=== PATIENT | male | born 1955 | race Caucasian/White ===

== ENCOUNTER 2018-08-19 14:10 | Inpatient (IN) | payer MEDICAID, OTHER ==
[~2018-08-19] VITALS: Ht 165.1 cm; Wt 64.0 kg
[~2018-08-19 14:10] MED LIST: GLUCOPHAGE; METFORMIN; TRAMADOL
[2018-08-19] MEDS ORDERED: SODIUM CHLORIDE 0.9% 1,000 ML IV ONE (14:41)
[2018-08-19] MEDS ORDERED: ONDANSETRON HCL 4MG/2ML INJ IV ONE (14:45)
[2018-08-19 16:08] LABS: BASOPHILS % 2.4 % (0.0-2.0); EOSINOPHILS % 0.4 % (0.0-5.0); HEMATOCRIT. 43.8 % (42.0-52.0); HEMOGLOBIN. 14.7 g/dL (14.0-18.0); LYMPHOCYTES % 29.9 % (20.0-50.0); MEAN CORPUSCULAR HEMOGLOBIN 33.1 pg (28.0-32.0); MEAN CORPUSCULAR VOLUME 98.8 fL (80.0-94.0); MEAN PLATELET VOLUME 8.7 fl (7.4-10.4); MONOCYTES % 4.1 % (2.0-8.0); NEUTROPHILS % 63.2 % (40.0-76.0); PLATELET 220 x1000/uL (130-400); RED BLOOD CELL COUNT 4.43 mill/uL (4.7-6.1); RED CELL DISTRIBUTION WIDTH 16.3 % (11.6-14.6)
[2018-08-19 16:10] LABS: CHLORIDE 95 mEq/L (98-107)
[2018-08-19 16:44] LABS: ETHANOL BLOOD 435 mg/dL
[2018-08-19 20:46] LABS: *AMPHETAMINES SCREEN URINE NEGATIVE (NEGATIVE); *BARBITURATES SCREEN URINE NEGATIVE (NEGATIVE)
[2018-08-19 20:47] LABS: *BENZODIAZEPINES SCREEN URINE NEGATIVE (NEGATIVE); *COCAINE SCREEN URINE NEGATIVE (NEGATIVE); CANNABINOID URINE SCREEN NEGATIVE (NEGATIVE); METHADONE URINE SCREEN NEGATIVE (NEGATIVE); OPIATES URINE SCREEN NEGATIVE (NEGATIVE); PHENCYCLIDINE URINE SCREEN NEGATIVE (NEGATIVE)
[2018-08-20] MEDS ORDERED: CHLORDIAZEPOXIDE 25MG CAPSULE PO NR (07:00)
[2018-08-20] MEDS ORDERED: LORAZEPAM 2MG/ML CPJ IM ONE (08:15)
[2018-08-20] MEDS ORDERED: LORAZEPAM 2MG/ML CPJ IV STA (09:17)
[2018-08-20] MEDS ORDERED: FOLIC ACID 1 MG, THIAMINE HCL 100 MG, MVI, ADULT NO.1 10 ML in DEXTROSE 5% WATER 1,000 ML IV ONE ×4 (09:30)
[2018-08-20 09:44] LABS: BASOPHILS % 0.9 % (0.0-2.0); EOSINOPHILS % 0.1 % (0.0-5.0); HEMATOCRIT. 40.6 % (42.0-52.0); HEMOGLOBIN. 13.6 g/dL (14.0-18.0); LYMPHOCYTES % 7.5 % (20.0-50.0); MEAN CORPUSCULAR HEMOGLOBIN 33.2 pg (28.0-32.0); MEAN CORPUSCULAR VOLUME 99.3 fL (80.0-94.0); MEAN PLATELET VOLUME 8.8 fl (7.4-10.4); MONOCYTES % 5.8 % (2.0-8.0); NEUTROPHILS % 85.7 % (40.0-76.0); PLATELET 185 x1000/uL (130-400); RED BLOOD CELL COUNT 4.09 mill/uL (4.7-6.1); RED CELL DISTRIBUTION WIDTH 15.9 % (11.6-14.6)
[2018-08-20 09:48] LABS: CHLORIDE 89 mEq/L (98-107)
[2018-08-20 09:51] LABS: ETHANOL BLOOD < 10 mg/dL
[2018-08-20] MEDS: SODIUM CHLORIDE 0.9% 1,000 ML IV NR (12:10)
[2018-08-20] MEDS ORDERED: DEXTROSE 50% WATER 50ML SYRINGE IV PRN (15:30)
[2018-08-20] MEDS ORDERED: LORAZEPAM 2MG/ML CPJ IV PRN (15:30)
[2018-08-20] MEDS ORDERED: ONDANSETRON HCL 4MG/2ML INJ IV PRN (15:30)
[2018-08-20] MEDS: SODIUM CHLORIDE 0.9% 1,000 ML IV SCH ×3 (15:42→23:43)
[2018-08-20] MEDS ORDERED: CLONIDINE 0.1MG TABLET PO PRN (15:45)
[2018-08-20] MEDS: CHLORDIAZEPOXIDE 25MG CAPSULE PO SCH ×2 (15:55→16:02)
[2018-08-20 15:59] LABS: CLARITY URINE CLEAR (CLEAR); COLOR URINE YELLOW (YELLOW); KETONES URINE 1+ (NEGATIVE); LEUKOCYTE ESTERASE URINE NEGATIVE (NEGATIVE); NITRITE URINE NEGATIVE (NEGATIVE); OCCULT BLOOD URINE NEGATIVE (NEGATIVE); PROTEIN URINE 1+ (NEGATIVE); SPECIFIC GRAVITY URINE 1.013 (1.005-1.030); UROBILINOGEN URINE 0.2 E.U./dL (0.2-1.0)
[2018-08-20] MEDS: BLOOD SUGAR DIAGNOSTIC STRIP TEST SCH (21:00)
[2018-08-20] MEDS: INSULIN LISPRO 100 UNITS/ML SUBCUT SCH (21:50)
[2018-08-20] MEDS ORDERED: INSULIN GLARGINE UD 100 UNITS/ML SYR SUBCUT SCH ×2 (22:00)
[2018-08-20 22:30] VITALS: BP 146/88
[2018-08-20] MEDS: AMLODIPINE 5MG TABLET PO SCH (23:41)
[2018-08-20] MEDS: METOPROLOL TARTRATE 50MG TABLET PO SCH (23:41)
[2018-08-21] VITALS: BP 132/86
[2018-08-21] MEDS: HYDROCODONE/ACETAMINOPHEN 10/325MG TABLET PO PRN ×2 (00:10→21:17)
[2018-08-21 04:00] VITALS: BP_SYST 121; BP_SYST 129; BP_DIAS 71; BP_DIAS 81
[2018-08-21] MEDS: CHLORDIAZEPOXIDE 25MG CAPSULE PO SCH ×3 (05:40→21:15)
[2018-08-21] MEDS: BLOOD SUGAR DIAGNOSTIC STRIP TEST SCH ×4 (05:44→21:15)
[2018-08-21 06:20] LABS: BASOPHILS % 1.4 % (0.0-2.0); EOSINOPHILS % 1.2 % (0.0-5.0); HEMATOCRIT. 35.6 % (42.0-52.0); HEMOGLOBIN. 12.1 g/dL (14.0-18.0); LYMPHOCYTES % 29.8 % (20.0-50.0); MEAN CORPUSCULAR HEMOGLOBIN 33.2 pg (28.0-32.0); MEAN CORPUSCULAR VOLUME 97.5 fL (80.0-94.0); MEAN PLATELET VOLUME 9.3 fl (7.4-10.4); MONOCYTES % 8.1 % (2.0-8.0); NEUTROPHILS % 59.5 % (40.0-76.0); PLATELET 153 x1000/uL (130-400); RED BLOOD CELL COUNT 3.65 mill/uL (4.7-6.1); RED CELL DISTRIBUTION WIDTH 15.9 % (11.6-14.6)
[2018-08-21 07:05] LABS: CHLORIDE 95 mEq/L (98-107)
[2018-08-21] MEDS ORDERED: POTASSIUM CHLORIDE 20MEQ TABLET SR PO NR (08:15)
[2018-08-21] MEDS: METOPROLOL TARTRATE 50MG TABLET PO SCH ×2 (09:00→21:15)
[2018-08-21] MEDS: AMLODIPINE 5MG TABLET PO SCH ×2 (09:00→21:15)
[2018-08-21] MEDS: FOLIC ACID 1MG TABLET PO SCH (09:07)
[2018-08-21] MEDS: MULTIVITAMINS,THER W-MINERALS TABLET PO SCH (09:07)
[2018-08-21] MEDS: THIAMINE HCL 100MG TABLET PO SCH (09:07)
[2018-08-21] MEDS: INSULIN LISPRO 100 UNITS/ML SUBCUT SCH ×4 (09:12→23:06)
[2018-08-21] MEDS ORDERED: INSULIN GLARGINE UD 100 UNITS/ML SYR SUBCUT SCH (10:00)
[2018-08-21] MEDS: INSULIN GLARGINE UD 100 UNITS/ML SYR SUBCUT SCH ×2 (11:14→23:06)
[2018-08-21] MEDS ORDERED: ACETAMINOPHEN 325MG TABLET PO PRN (11:15)
[2018-08-21 20:00] VITALS: BP 129/84
[2018-08-21 20:01] LABS: HEPATITIS B SURFACE ANTIGEN NEGATIVE
[2018-08-21 20:31] LABS: HEPATITIS A AB IGM NEGATIVE (NEGATIVE)
[2018-08-21] MEDS: GABAPENTIN 300MG CAPSULE PO SCH (21:14)
[2018-08-22] VITALS (7 sets, daily range): BP systolic 88–128; BP diastolic 52–81
[2018-08-22 05:47] LABS: BASOPHILS % 1.3 % (0.0-2.0); EOSINOPHILS % 2.4 % (0.0-5.0); HEMATOCRIT. 35.4 % (42.0-52.0); HEMOGLOBIN. 12.1 g/dL (14.0-18.0); MEAN CORPUSCULAR HEMOGLOBIN 33.7 pg (28.0-32.0); MEAN CORPUSCULAR VOLUME 98.4 fL (80.0-94.0); MEAN PLATELET VOLUME 9.5 fl (7.4-10.4); MONOCYTES % 6.7 % (2.0-8.0); NEUTROPHILS % 65.6 % (40.0-76.0); PLATELET 141 x1000/uL (130-400); RED CELL DISTRIBUTION WIDTH 15.8 % (11.6-14.6)
[2018-08-22] MEDS: BLOOD SUGAR DIAGNOSTIC STRIP TEST SCH ×4 (06:07→21:40)
[2018-08-22] MEDS: INSULIN LISPRO 100 UNITS/ML SUBCUT SCH ×4 (06:07→22:12)
[2018-08-22] MEDS: CHLORDIAZEPOXIDE 25MG CAPSULE PO SCH ×3 (06:09→22:13)
[2018-08-22] MEDS: GABAPENTIN 300MG CAPSULE PO SCH ×3 (06:09→22:13)
[2018-08-22] MEDS: SODIUM CHLORIDE 0.9% 1,000 ML IV SCH ×2 (06:10→19:39)
[2018-08-22 06:53] LABS: CHLORIDE 101 mEq/L (98-107)
[2018-08-22] MEDS: METOPROLOL TARTRATE 50MG TABLET PO SCH (09:00)
[2018-08-22] MEDS: AMLODIPINE 5MG TABLET PO SCH ×2 (09:00→21:00)
[2018-08-22] MEDS: FOLIC ACID 1MG TABLET PO SCH (09:14)
[2018-08-22] MEDS: MULTIVITAMINS,THER W-MINERALS TABLET PO SCH (09:14)
[2018-08-22] MEDS: THIAMINE HCL 100MG TABLET PO SCH (09:14)
[2018-08-22] MEDS: INSULIN GLARGINE UD 100 UNITS/ML SYR SUBCUT SCH ×2 (10:27→22:15)
[2018-08-22] MEDS ORDERED: POTASSIUM CHLORIDE 20MEQ TABLET SR PO NR (13:00)
[2018-08-23 04:00] VITALS: BP 109/65
[2018-08-23] MEDS: BLOOD SUGAR DIAGNOSTIC STRIP TEST SCH ×4 (06:57→21:48)
[2018-08-23] MEDS: CHLORDIAZEPOXIDE 25MG CAPSULE PO SCH ×3 (06:57→21:49)
[2018-08-23] MEDS: GABAPENTIN 300MG CAPSULE PO SCH ×3 (06:57→21:49)
[2018-08-23 08:00] VITALS: BP 110/74
[2018-08-23] MEDS: AMLODIPINE 5MG TABLET PO SCH ×2 (09:17→21:49)
[2018-08-23] MEDS: FOLIC ACID 1MG TABLET PO SCH (09:18)
[2018-08-23] MEDS: THIAMINE HCL 100MG TABLET PO SCH (09:18)
[2018-08-23] MEDS: MULTIVITAMINS,THER W-MINERALS TABLET PO SCH (09:18)
[2018-08-23] MEDS: INSULIN LISPRO 100 UNITS/ML SUBCUT SCH ×4 (09:19→21:59)
[2018-08-23 12:00] VITALS: BP 97/56
[2018-08-23] MEDS: INSULIN GLARGINE UD 100 UNITS/ML SYR SUBCUT SCH ×2 (13:28→21:59)
[2018-08-23] MEDS: SODIUM CHLORIDE 0.9% 1,000 ML IV SCH (13:29)
[2018-08-23 20:00] VITALS: BP 120/70
[2018-08-23] MEDS: HYDROCODONE/ACETAMINOPHEN 10/325MG TABLET PO PRN (23:30)
[2018-08-24] VITALS (7 sets, daily range): BP systolic 109–133; BP diastolic 68–85
[2018-08-24] MEDS: CHLORDIAZEPOXIDE 25MG CAPSULE PO SCH ×3 (06:33→22:12)
[2018-08-24] MEDS: GABAPENTIN 300MG CAPSULE PO SCH ×3 (06:33→22:10)
[2018-08-24] MEDS: BLOOD SUGAR DIAGNOSTIC STRIP TEST SCH ×4 (06:42→21:58)
[2018-08-24] MEDS ORDERED: POTASSIUM CHLORIDE 20MEQ TABLET SR PO NR (08:00)
[2018-08-24] MEDS: MULTIVITAMINS,THER W-MINERALS TABLET PO SCH (08:42)
[2018-08-24] MEDS: THIAMINE HCL 100MG TABLET PO SCH (08:42)
[2018-08-24] MEDS: FOLIC ACID 1MG TABLET PO SCH (08:42)
[2018-08-24] MEDS: AMLODIPINE 5MG TABLET PO SCH ×2 (08:43→22:11)
[2018-08-24] MEDS: INSULIN LISPRO 100 UNITS/ML SUBCUT SCH ×4 (08:51→22:04)
[2018-08-24] MEDS: INSULIN GLARGINE UD 100 UNITS/ML SYR SUBCUT SCH ×2 (10:35→22:05)
[2018-08-25] VITALS: BP 144/82
[2018-08-25 04:00] VITALS: BP 133/86
[2018-08-25] MEDS: CHLORDIAZEPOXIDE 25MG CAPSULE PO SCH (05:19)
[2018-08-25] MEDS: GABAPENTIN 300MG CAPSULE PO SCH (05:19)
[2018-08-25] MEDS: BLOOD SUGAR DIAGNOSTIC STRIP TEST SCH (06:42)
[2018-08-25 08:00] VITALS: BP 119/79
[2018-08-25 08:33] VITALS: BP 119/79
[2018-08-25] MEDS: HYDROCODONE/ACETAMINOPHEN 10/325MG TABLET PO PRN (08:33)
[2018-08-25] MEDS: AMLODIPINE 5MG TABLET PO SCH (08:34)
[2018-08-25] MEDS: MULTIVITAMINS,THER W-MINERALS TABLET PO SCH (08:34)
[2018-08-25] MEDS: THIAMINE HCL 100MG TABLET PO SCH (08:34)
[2018-08-25] MEDS: FOLIC ACID 1MG TABLET PO SCH (08:34)
[2018-08-25] MEDS: INSULIN LISPRO 100 UNITS/ML SUBCUT SCH ×2 (08:38→11:56)
[2018-08-25] MEDS: INSULIN GLARGINE UD 100 UNITS/ML SYR SUBCUT SCH (11:10)
== END 2018-08-25 12:17 | DRG 52 ==
LOC: ER 14:26 → 7WST 08-20 12:05 → EDBEDREQ 08-20 12:10 → EDBEDREQTM 08-20 12:10 → ENRESERV 08-20 19:33 → 6EST 08-23 16:31
PROVIDERS: ADMIT Internal Medicine; ATTEND Internal Medicine
DX: G92 Toxic encephalopathy (principal); E11.40 Type 2 diabetes mellitus with diabetic neuropathy, unspecified; E87.8 Other disorders of electrolyte and fluid balance, not elsewhere classified; E78.5 Hyperlipidemia, unspecified; K76.0 Fatty (change of) liver, not elsewhere classified; R16.0 Hepatomegaly, not elsewhere classified; F10.129 Alcohol abuse with intoxication, unspecified; Z71.41 Alcohol abuse counseling and surveillance of alcoholic
CPT/HCPCS: 36415; 71045; 76700; 80048; 80061; 80305; 80307; 80320; 80329; 82962; 83036; 83735; 84145; 84439; 84443; 86705; 86709; 86803; 87340; 93970; 96361; 96365; 96372; 96375; 97116; 97162; 97530; 99291; J1815; J2060; J2405; J3411; J3490; J7030; J7070; G0480